=== PATIENT | female | born 1990 | race Caucasian/White ===

== ENCOUNTER 2018-02-02 11:38 | Emergency (ER) | payer OTHER ==
[~2018-02-02] VITALS: Ht 160 cm; Wt 54.6 kg
[2018-02-02 11:43] VITALS: TEMP 36.7; Ht 160 cm; Wt 54.6 kg
[2018-02-02] MEDS ORDERED: PEGSOL6 PO (12:17)
[2018-02-02] MEDS ORDERED: OPTIRAY 320 IV PRN (12:30)
[2018-02-02 13:04] LABS: BASO % 0.2 %; BASO ABS # 0.01 K/uL (0-0.2); EOS % 0.7 %; EOS ABS # 0.03 K/uL (0-0.5); HEMATOCRIT 38.5 % (37-47); LYMPH ABS # 1.52 K/uL (1.2-3.4); MEAN CELL VOLUME 89.5 fL (80-100); MEAN CORPUSCULAR HEMOGLOBIN 30.2 pg (25-34); MEAN CORPUSCULAR HGB CONC 33.8 g/dl (32-36); MONO % 6.5 %; MONO ABS # 0.29 K/uL (0.11-0.59); NEUT % 58.6 %; NEUT ABS # 2.62 K/uL (1.4-6.5); PLATELET COUNT 208 K/uL (130-400); RED CELL DISTRIBUTION WIDTH CV 13.5 % (11.5-14.5); RED CELL DISTRIBUTION WIDTH SD 44.3 fL (36.4-46.3); WHITE BLOOD COUNT 4.47 K/uL (4.8-10.8)
[2018-02-02 13:21] LABS: ALBUMIN 4.1 gm/dl (3.4-5.0); CALCIUM 9.1 mg/dl (8.5-10.1); CREATININE 0.62 mg/dl (0.60-1.20); POTASSIUM 3.4 mmol/L (3.5-5.1)
[2018-02-02 13:24] LABS: TOTAL PROTEIN 7.2 gm/dl (6.4-8.2)
--- NOTE | 2018-02-02 14:28 | DIAGNOSTIC IMAGING REPORT ---
CT ABD/PELVIS IV CONTRAST ONLY CLINICAL HISTORY: Abdominal discomfort and bloating. COMPARISON STUDY: None. TECHNIQUE: Following the IV administration of 115 mL of Optiray-320, CT scan of the abdomen and pelvis was performed from the lung bases to the proximal femurs. Images are reviewed in the axial, sagittal, and coronal planes. IV contrast was administered without complication. A dose lowering technique was utilized adhering to the principles of ALARA. CT DOSE: 537.17 mGycm FINDINGS: Lower chest: Dependent pleural-based opacities are felt to be atelectatic. Liver: Is a 5 mm hypodensity within the right lobe of the liver, likely representing a cyst. Gallbladder: Unremarkable. Spleen: Normal in size and attenuation. Pancreas: Unremarkable. Adrenal glands: Unremarkable. Kidneys: There is symmetric renal cortical enhancement. The kidneys are normal in size without hydronephrosis. Bowel: Evaluation the bowel is limited given the lack of oral contrast and the paucity of intra-abdominal fat. There are no transition zones indicate bowel obstruction. The appendix is difficult to visualize but is likely within normal limits. There are multiple fluid-filled bowel loops, suggestive of an ileus or enteritis. Clinical follow-up is advocated. If there is strong clinical concern over the presence of primary bowel pathology, the examination could be repeated following administration of oral contrast Peritoneum: No free air is visualized. There is a small amount of free pelvic fluid. This is greater than expected for physiologic free fluid. Vasculature: The abdominal aorta is normal in course and caliber. Adenopathy: None. Pelvic viscera: There is a 3 cm right ovarian cyst. Skeletal structures: No destructive osseous lesions are seen. IMPRESSION: 1. Difficult study to interpret given the lack of oral contrast and the paucity of intra-abdominal fat 2. 3 cm right ovarian cyst 3. Free pelvic fluid, greater than expected for physiologic free fluid. The possibility of a ruptured ovarian cyst should be entertained. 4. No evidence of bowel obstruction no evidence of free air 5. Prominent fluid-filled loops of small bowel and colon. The findings likely represent an ileus or enteritis 6. The appendix is difficult to visualize, but likely is within normal limits Electronically signed by: Jose E Giles M.D. 02/02/2018 2:27 PM Dictated Date/Time: 02/02/2018 2:10 PM
[2018-02-02 14:57] VITALS: BP 99/60; PULSE 51; O2SAT 100
--- NOTE | 2018-02-02 15:15 | EMERGENCY ROOM VISIT NOTE ---
History Report prepared by Dawit: Dell Mae Under the Supervision of: Dr. Pete Rico D.O. First contact with patient: 12:10 Chief Complaint: OTHER COMPLAINT Stated Complaint: BLOATING History of Present Illness The patient is a 27 year old female who presents to the Emergency Room after referral from her Marketing Systems Manager with complaints of worsening bloating across her abdomen that she has been experiencing for the past 10 days. She notes that she is not having pain but just has "discomfort" and "fullness." She rates the severity of her fullness as a 9/10 in severity. The patient states that she has seen her Marketing Systems Manager 3 times in the past 10 days at [facility] and has had 3 x-rays performed. These showed worsening gas in her stomach. She is having bowel movements, and is passing gas with her BM. The last BM was 1 hour ago. Her gastro sent her to the ED today for a CT scan of the abdomen. Pt denies headache, change in vision, fevers, chest pain, shortness of breath, nausea, vomiting, diarrhea, pain with urination, and melena. 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 A total of 10 systems reviewed and were otherwise negative. Past Medical & Surgical No pertinent history per patient. Family History FH: cancer Hypertension Social History Smoking Status: Never Smoker Marital Status: single Housing Status: lives alone Occupation Status: employed Current/Historical Medications Scheduled Peg 6823-Hei-Xrd Bicarb-Sod Ch (Golytely), PO UD Allergies Coded Allergies: No Known Allergies (Unverified , 02/02/18) Physical Exam Vital Signs Date Time Temp Pulse Resp B/P (MAP) Pulse Ox O2 Delivery O2 Flow Rate FiO2 02/02/18 14:57 51 18 99/60 100 02/02/18 13:39 73 18 95/64 99 Room Air 02/02/18 11:43 36.7 64 16 105/71 98 Room Air Physical Exam GENERAL: Sitting up in bed, alert, well appearing, well nourished, no distress, non-toxic EYE EXAM: normal conjunctiva. PERRL and EOM's grossly intact. OROPHARYNX: no exudate, no erythema, lips, buccal mucosa, and tongue normal and mucous membranes are moist NECK: supple, no nuchal rigidity, no adenopathy, non-tender LUNGS: Clear to auscultation. Normal chest wall mechanics HEART: no murmurs, S1 normal and S2 normal ABDOMEN: abdomen soft, non-tender, normo-active bowel sounds, no masses, no rebound or guarding. BACK: Back is symmetrical on inspection and there is no deformity, no midline tenderness, no CVA tenderness. SKIN: no rashes and no bruising UPPER EXTREMITIES: upper extremities are grossly normal. LOWER EXTREMITIES: No pitting edema. NEURO EXAM: Normal sensorium, cranial nerves II-XII grossly intact, normal speech, no gross weakness of arms, no gross weakness of legs. Medical Decision & Procedures ER Provider Diagnostic Interpretation: Radiology results as stated below per my review and the radiologist's interpretation: CT ABD/PELVIS IV CONTRAST ONLY CLINICAL HISTORY: Abdominal discomfort and bloating. COMPARISON STUDY: None. TECHNIQUE: Following the IV administration of 115 mL of Optiray-320, CT scan of the abdomen and pelvis was performed from the lung bases to the proximal femurs. Images are reviewed in the axial, sagittal, and coronal planes. IV contrast was administered without complication. A dose lowering technique was utilized adhering to the principles of ALARA. CT DOSE: 537.17 mGycm FINDINGS: Lower chest: Dependent pleural-based opacities are felt to be atelectatic. Liver: Is a 5 mm hypodensity within the right lobe of the liver, likely representing a cyst. Gallbladder: Unremarkable. Spleen: Normal in size and attenuation. Pancreas: Unremarkable. Adrenal glands: Unremarkable. Kidneys: There is symmetric renal cortical enhancement. The kidneys are normal in size without hydronephrosis. Bowel: Evaluation the bowel is limited given the lack of oral contrast and the paucity of intra-abdominal fat. There are no transition zones indicate bowel obstruction. The appendix is difficult to visualize but is likely within normal limits. There are multiple fluid-filled bowel loops, suggestive of an ileus or enteritis. Clinical follow-up is advocated. If there is strong clinical concern over the presence of primary bowel pathology, the examination could be repeated following administration of oral contrast Peritoneum: No free air is visualized. There is a small amount of free pelvic fluid. This is greater than expected for physiologic free fluid. Vasculature: The abdominal aorta is normal in course and caliber. Adenopathy: None. Pelvic viscera: There is a 3 cm right ovarian cyst. Skeletal structures: No destructive osseous lesions are seen. IMPRESSION: 1. Difficult study to interpret given the lack of oral contrast and the paucity of intra-abdominal fat 2. 3 cm right ovarian cyst 3. Free pelvic fluid, greater than expected for physiologic free fluid. The possibility of a ruptured ovarian cyst should be entertained. 4. No evidence of bowel obstruction no evidence of free air 5. Prominent fluid-filled loops of small bowel and colon. The findings likely represent an ileus or enteritis 6. The appendix is difficult to visualize, but likely is within normal limits Electronically signed by: Jose E Giels M.D. 02/02/2018 2:27 PM Dictated Date/Time: 02/02/2018 2:10 PM Laboratory Results 02/02/18 12:50 Red Blood Count 4.30, Mean Corpuscular Volume 89.5, Mean Corpuscular Hemoglobin 30.2, Mean Corpuscular Hemoglobin Concent 33.8, Mean Platelet Volume 9.0, Neutrophils (%) (Auto) 58.6, Lymphocytes (%) (Auto) 34.0, Monocytes (%) (Auto) 6.5, Eosinophils (%) (Auto) 0.7, Basophils (%) (Auto) 0.2, Neutrophils # (Auto) 2.62, Lymphocytes # (Auto) 1.52, Monocytes # (Auto) 0.29, Eosinophils # (Auto) 0.03, Basophils # (Auto) 0.01 02/02/18 12:50 Test 02/02/18 12:15 02/02/18 12:50 Urine Color YELLOW Urine Appearance CLEAR (CLEAR) Urine pH 7.5 (4.5-7.5) Urine Specific [place] 1.005 (1.000-1.030) Urine Protein NEG (NEG) Urine Glucose (UA) NEG (NEG) Urine Ketones NEG (NEG) Urine Occult Blood NEG (NEG) Urine Nitrite NEG (NEG) Urine Bilirubin NEG (NEG) Urine Urobilinogen NEG (NEG) Urine Leukocyte Esterase NEG (NEG) Urine WBC (Auto) 0 /hpf (0-5) Urine RBC (Auto) 0-4 /hpf (0-4) Urine Hyaline Casts (Auto) 1-5 /lpf (0-5) Urine Epithelial Cells (Auto) 10-20 /lpf (0-5) Urine Bacteria (Auto) NEG (NEG) Urine Test NEG (NEG) White Blood Count 4.47 K/uL (4.8-10.8) Red Blood Count 4.30 M/uL (4.2-5.4) Hemoglobin 13.0 g/dL (12.0-16.0) Hematocrit 38.5 % (37-47) Mean Corpuscular Volume 89.5 fL (80-100) Mean Corpuscular Hemoglobin 30.2 pg (25-34) Mean Corpuscular Hemoglobin Concent 33.8 g/dl (32-36) Platelet Count 208 K/uL (130-400) Mean Platelet Volume 9.0 fL (7.4-10.4) Neutrophils (%) (Auto) 58.6 % Lymphocytes (%) (Auto) 34.0 % Monocytes (%) (Auto) 6.5 % Eosinophils (%) (Auto) 0.7 % Basophils (%) (Auto) 0.2 % Neutrophils # (Auto) 2.62 K/uL (1.4-6.5) Lymphocytes # (Auto) 1.52 K/uL (1.2-3.4) Monocytes # (Auto) 0.29 K/uL (0.11-0.59) Eosinophils # (Auto) 0.03 K/uL (0-0.5) Basophils # (Auto) 0.01 K/uL (0-0.2) RDW Standard Deviation 44.3 fL (36.4-46.3) RDW Coefficient of Variation 13.5 % (11.5-14.5) Immature Granulocyte % (Auto) 0.0 % Immature Granulocyte # (Auto) 0.00 K/uL (0.00-0.02) Anion Gap 7.0 mmol/L (3-11) Est Creatinine Clear Calc Drug Dose 113.7 ml/min Estimated GFR () 144.2 Estimated GFR (Non- 124.4 BUN/Creatinine Ratio 9.1 (10-20) Calcium Level 9.1 mg/dl (8.5-10.1) Total Bilirubin 0.5 mg/dl (0.2-1) Direct Bilirubin 0.1 mg/dl (0-0.2) Aspartate Amino Transf (AST/SGOT) 16 U/L (15-37) Alanine Aminotransferase (ALT/SGPT) 24 U/L (12-78) Alkaline Phosphatase 49 U/L (45-117) Total Protein 7.2 gm/dl (6.4-8.2) Albumin 4.1 gm/dl (3.4-5.0) Lipase 152 U/L (73-393) Laboratory results per my review. ED Course ED COURSE: Vital signs were reviewed and showed normal vitals. The patients medical record was reviewed The above diagnostic studies were performed and reviewed. ED treatments and interventions as stated above. 1211: The patient was evaluated in room C7. A complete history and physical examination was performed. 1500: Upon reevaluation, the patient is resting in bed.I discussed my findings with the patient and she understands and agrees with the treatment plan. Based on the patients age, coexisting illnesses, exam and lab findings the decision to treat as an outpatient was made. The patient remained stable while under my care. The patient appeared well at the time of discharge. Medical Decision Differential diagnoses includes but is not limited to gastritis, peptic ulcer disease, GERD, gallbladder disease, pancreatitis, small bowel obstruction, acute coronary syndrome, pericarditis, ischemic bowel, irritable bowel disease, irritable bowel syndrome, appendicitis, diverticulitis, malignancy, hernia, urinary tract infection, torsion, perforation, trauma, infectious. Patient is a 27-year-old female who presents the ER referred in by Georgette Dixon. Patient has been followed as an outpatient as she has been having bloating over the past 10 days. Patient's abdominal exam is fairly benign. No signs of peritonitis. CBC along with BMP, LFTs, bilirubin lipase is unremarkable. UA was negative. was negative. Per report CT abdomen pelvis was performed and shows no obvious obstruction but a likely ileus. CT did show small amount of increased pelvic fluid although her exam and history is not consistent with ovarian cyst. We discussed the case and they will follow her up as an outpatient. Patient was updated at bedside. I did instruct her to take MiraLAX as prescribed on discharge instructions. Medication Reconcilliation Current Medication List: was personally reviewed by me Blood Pressure Screening Patient's blood pressure: Normal blood pressure Impression Primary Impression: Abdominal pain Scribe Attestation The scribe's documentation has been prepared under my direction and personally reviewed by me in its entirety. I confirm that the note above accurately reflects all work, treatment, procedures, and medical decision making performed by me. Departure Information Dispostion Home / Self-Care Referrals No Doctor, Assigned (PCP) Forms HOME CARE DOCUMENTATION FORM, IMPORTANT VISIT INFORMATION, WORK / SCHOOL INSTRUCTIONS Patient Instructions My [facility] Additional Instructions Please follow up with your primary care doctor with in the next 24 hours. Any worsening of your symptoms, please return to the ED immediately. This includes any fevers greater than 100.4, worsening pain, chest pain, shortness breath, persistent nausea, vomiting, unable to eat or drink, or any other concerning signs or symptoms from your standpoint. Please take MiraLAX 250 g mixed with 64 ounces of Gatorade. Please drink 8 ounces every 15-30 minutes until you have a bowel movement. Please follow-up with your GI doctor/physician within the next 24-48 hours. Problem Qualifiers Primary Impression: Abdominal pain Abdominal location: unspecified location Qualified Codes: R10.9 - Unspecified abdominal pain
== END 2018-02-02 14:55 | disposition home or self-care (01) ==
LOC: C.EDB 11:39 → C.EDC 14:55
DX: R10.9 Unspecified abdominal pain (principal)

== ENCOUNTER → 2018-02-03 | Outpatient (CLI) | payer OTHER ==
[~2018-02-03] MED LIST: OPTIRAY 320 IV PRN; PEGSOL6 PO
--- NOTE | 2018-02-03 07:59 | DIAGNOSTIC IMAGING REPORT ---
CT ABD/PELVIS IV AND ORAL CONT CLINICAL HISTORY: R14.0 Abdominal [id number] Abnormal x-ray COMPARISON STUDY: 02/02/2018 TECHNIQUE: Following the IV administration of 94 mL of Optiray-320, CT scan of the abdomen and pelvis was performed from the lung bases to the proximal femurs. Images are reviewed in the axial, sagittal, and coronal planes. IV contrast was administered without complication. A dose lowering technique was utilized adhering to the principles of ALARA. CT DOSE: 318.17 mGy.cm FINDINGS: Lower chest: The heart is normal in size and configuration, without pericardial effusion. The lung bases and pleural spaces are clear. Liver: There is a stable 5 mm hypodensity within the right hepatic lobe, likely representing a cyst Gallbladder: Slight increase in gallbladder density, likely represents vicarious excretion of contrast. Spleen: Normal in size and attenuation. Pancreas: Unremarkable. Adrenal glands: Unremarkable. Kidneys: There is symmetric renal cortical enhancement. The kidneys are normal in size without hydronephrosis. Bowel: There are no transition zones indicate bowel obstruction. There is a small amount of fluid present within the colon. There is no pathologic bowel wall thickening. There is no pneumatosis. There is no evidence of acute diverticulitis. There is no evidence of acute appendicitis. Peritoneum: There is decreasing free pelvic fluid. There is no free air. Vasculature: The abdominal aorta is normal in course and caliber. Adenopathy: None. Pelvic viscera: There is a 28 mm right ovarian cyst likely functional Skeletal structures: No destructive osseous lesions are seen. IMPRESSION: 1. No acute intra-abdominal or pelvic findings. 2. No evidence of bowel obstruction. No evidence of free air. 3. No evidence of pathologic bowel wall thickening. 4. No evidence of acute diverticulitis. No evidence of acute appendicitis. 5. 28 mm right ovarian cyst likely functional 6. Trace free pelvic fluid which is felt to be within normal limits. Electronically signed by: Jose E Giles M.D. 02/03/2018 7:57 AM Dictated Date/Time: 02/03/2018 7:51 AM
== END | disposition home or self-care (01) ==
LOC: C.CTS 05:39
PROVIDERS: ATTEND Physician Assistant
DX: K59.00 Constipation, unspecified (principal); R14.0 Abdominal distension (gaseous); R93.5 Abnormal findings on diagnostic imaging of other abdominal regions, including retroperitoneum; N83.201 Unspecified ovarian cyst, right side